=== PATIENT | male | born 1955 | race Caucasian/White ===

== ENCOUNTER 2021-04-08 16:53 | Emergency (ER) | payer MEDICARE, OTHER ==
[~2021-04-08 16:53] MED LIST: ATIVAN0.5 MG PO; CO Q10100 MG PO; COZAAR25 MG PO; CRESTOR20 MG PO; GLUCOTROL5 MG PO; ISOSORBIDE DINI30 MG PO; MAGNESIUM500 MG PO; NORCO 5-325 TA1 EACH PO; NORVASC 10MG TA10 MG PO; PLAVIX75 MG PO; ZOFRAN8 MG PO
[2021-04-08 17:34] LABS: BASOPHIL 0.8 % (0-2); EOSINOPHIL 0.6 % (0-7); HCT 50.7 % (42.0-52.0); HGB 16.8 g/dl (13.2-18.0); MCH 29.2 pg (25.0-31.0); MCHC 33.1 g/dL (32.0-36.0); MONOCYTE 8.5 % (0-12); MPV 10.3 fL (6.0-9.5); NEUTROPHIL 68.7 % (41-80); NRBC 0; PLT 203 K/uL (150-400); RBC 5.76 M/uL (4.70-6.00); RDW 13.1 % (11.5-14.0)
[2021-04-08 17:39] LABS: INR 1.01 (0.9-1.2); PROTHROMBIN TIME 12.7 SECONDS (11.8-13.4); PTT 31.3 SECONDS (24.4-34.7)
[2021-04-08 17:41] LABS: D-DIMER 0.87 ug/mLFEU (0.00-0.41)
[2021-04-08 17:53] LABS: ALBUMIN 4.2 g/dL (3.4-5.0); BUN/CREAT RATIO (CALC) 15.2 RATIO; CREATININE 1.05 mg/dL (0.67-1.17); GLOBULIN (CALCULATION) 4.6 g/dL; POTASSIUM 4.3 mmol/L (3.5-5.1); TOTAL PROTEIN 8.8 g/dL (6.4-8.2)
[2021-04-08 19:49] LABS: CORONAVIRUS 2019 SARS-COV-2 NEGATIVE (NEGATIVE); INFLUENZA A NAA NEGATIVE (NEGATIVE)
[2021-04-08 20:46] LABS: BILIRUBIN NEGATIVE (NEGATIVE); BLOOD NEGATIVE Ery/uL (NEGATIVE); CLARITY CLEAR (CLEAR); COLOR YELLOW (YELLOW); GLUCOSE (U) NORMAL (NORMAL); LEUKOCYTES NEGATIVE Leu/uL (NEGATIVE); NITRITE NEGATIVE (NEGATIVE); PROTEIN NEGATIVE (NEGATIVE); SPECIFIC GRAVITY 1.015 (1.001-1.030); UROBILINOGEN 0.2 mg/dL (0.2-1.0); pH 7.5 (5.0-9.0)
[2021-04-08 20:51] LABS: AMPHETAMINES NEGATIVE (NEGATIVE); BARBITURATES NEGATIVE (NEGATIVE); ECSTASY (MDMA) NEGATIVE (NEGATIVE); MARIJUANA (THC) NEGATIVE (NEGATIVE); METHADONE NEGATIVE (NEGATIVE); OPIATES NEGATIVE (NEGATIVE); OXYCODONE NEGATIVE (NEGATIVE)
== END 2021-04-08 22:25 | disposition home or self-care (01) ==
LOC: FER 16:53
PROVIDERS: Emergency Medicine; Nurse Practitioner Family
DX: K21.9 Gastro-esophageal reflux disease without esophagitis (principal); R07.89 Other chest pain; E11.9 Type 2 diabetes mellitus without complications; Z88.0 Allergy status to penicillin; Z79.84 Long term (current) use of oral hypoglycemic drugs; Z20.822 Contact with and (suspected) exposure to COVID-19
CPT/HCPCS: 36415; 71045; 71275; 80053; 80305; 81003; 84484; 85025; 85379; 85610; 85730; 93005; J7030; Q9967; U0002

== ENCOUNTER 2021-04-17 11:48 | Emergency (ER) | payer MEDICARE, OTHER ==
[2021-04-17 13:27] LABS: CORONAVIRUS 2019 SARS-COV-2 POSITIVE (NEGATIVE); INFLUENZA A NAA NEGATIVE (NEGATIVE)
== END 2021-04-17 18:00 | disposition home or self-care (01) ==
LOC: FER 11:48
PROVIDERS: Emergency Medicine
DX: U07.1 COVID-19 (principal); I10 Essential (primary) hypertension; Z23 Encounter for immunization; Z88.2 Allergy status to sulfonamides
CPT/HCPCS: M0245; Q0245; U0002